=== PATIENT | female | born 1995 | race American Indian/Alaskan Native ===

== ENCOUNTER 2017-06-12 15:37 | Outpatient (CLI) | payer MEDICAID ==
[2017-06-12 17:20] VITALS: BP 137/65
--- NOTE | 2017-06-12 17:37 | Ultrasound Report ---
FINAL REPORT PROCEDURE: US OB BPP WO NON-STRESS TECHNIQUE: Sonographic evaluation for breathing, movement, tone, and amniotic fluid volume was performed. CPT 44268 HISTORY: WELL BEING COMPARISON: No prior studies are available for comparison. FINDINGS: Amniotic fluid volume: Normal-score 2. At least one vertical pocket > 2 cm or more in vertical axis. breathing: Normal-score 2. movement: Normal-score 2. tone: Normal. Score: 8 of 8. heart rate 163 beats per minute IMPRESSION: Normal biophysical profile.
--- NOTE | 2017-06-12 17:41 | Ultrasound Report ---
FINAL REPORT PROCEDURE: US OB LIMITED TECHNIQUE: Real-time limited sonographic examination was performed for evaluation of size, position, heartbeat, fluid volume for each fetus with image documentation (1 or more fetuses). CPT 87050 HISTORY: TOO COMPARISON: No prior studies are available for comparison. FINDINGS: Single viable fetus. TOO 8.9 centimeters. Cephalic position. Heart rate 163 beats per minute. Bio physical profile score of 8 out of 8. TOO 8.9. Estimated age 37 week 3 day estimated delivery June 30, 2017 both by clinical criteria IMPRESSION: Single viable fetus estimated age 37 week 3 day TOO 8.9 centimeters
== END 2017-06-12 18:34 | disposition home or self-care (01) ==
LOC: TRG 15:37
PROVIDERS: ATTEND Obstetrics & Gynecology
DX: O47.1 False labor at or after 37 completed weeks of gestation (principal); Z3A.37 37 weeks gestation of pregnancy
CPT/HCPCS: 59025; 76815; 76819

== ENCOUNTER 2018-02-27 23:08 | Emergency (ER) | payer SELFPAY ==
[2018-02-28 00:44] LABS: Basophils % (Auto) 0.2 % (0.0-1.8); Eosinophils % (Auto) 2.1 % (0.0-4.3); Hematocrit 37.2 % (30.3-42.9); Hemoglobin 12.3 gm/dl (10.1-14.3); Lymphocytes # (Auto) 2.2 K/mm3 (1.2-5.4); Lymphocytes % (Auto) 20.2 % (13.4-35.0); Mean Corpuscular HGB Conc 33 % (30-34); Mean Corpuscular Hemoglobin 28 pg (28-32); Mean Corpuscular Volume 84 fl (79-97); Monocytes # (Auto) 0.7 K/mm3 (0.0-0.8); Monocytes % (Auto) 6.2 % (0.0-7.3); Platelet Count 284 K/mm3 (140-440); Red Blood Count 4.41 M/mm3 (3.65-5.03); Red Cell Distribution Width 16.5 % (13.2-15.2)
[2018-02-28 00:45] LABS: Eosinophils # (Auto) 0.2 K/mm3 (0.0-0.4)
[2018-02-28 00:57] LABS: BUN/Creatinine Ratio 12; Blood Urea Nitrogen 7 mg/dL (7-17); Calcium 9.4 mg/dL (8.4-10.2); Hemolysis Index 0
[2018-02-28] MEDS ORDERED: TORADOL IM ONE (06:32)
[2018-02-28] MEDS ORDERED: TYLENOL PO ONE (06:32)
--- NOTE | 2018-02-28 06:33 | Emergency Department Report ---
ED General Adult HPI - General Chief complaint: Chest Pain Stated complaint: LOWER STOMACH CHEST,BACK HURTING Time Seen by Provider: 02/28/18 06:05 Source: patient, RN notes reviewed Mode of arrival: Ambulatory Limitations: No Limitations - History of Present Illness Initial comments: This is a 22-year-old female who is not known to this provider previously. She denies chronic medical conditions and reportedly does not have a local primary care doctor. Patient presents to the ER with 3 complaints. Her first complaint is back pain. It started 3 days ago. It is paralumbar, and does not radiate anywhere. It does not have exacerbating or relieving factors. She denies lower extremity weakness, numbness, urinary incontinence, bladder or bowel retention/incontinence. She is not taking any pain medicine for. Next complaint is central chest wall pain. The pain has been present for 2 days. It is constant, increases with palpation and decreases with rest. It does not radiate anywhere. She denies oral contraceptives, recent travel, recent immobility, personal or family history of DVT, pulmonary embolus, does not recently taken aspirin, and has not recently consumed cocaine. There is no family history of heart disease that she is aware of. Her final complaint is left lower quadrant abdominal pain. It's been present for 3 days. It does not have exacerbating or relieving factors. It is achy in nature. It does not radiate anywhere. She denies nausea, vomiting, urinary symptoms, constipation. -: Gradual, days(s) Location: chest, back, abdomen Radiation: non-radiation Quality: aching Consistency: other Improves with: other Worsens with: other Associated Symptoms: chest pain. denies: confusion, cough, diaphoresis, fever/ chills, headaches, loss of appetite, malaise, nausea/vomiting, rash, seizure, shortness of breath, syncope, weakness - Related Data Previous Rx's Medication Instructions Recorded Last Taken Type Ibuprofen [Motrin 800 MG tab] 800 mg PO TID PRN #30 tablet 03/27/13 Unknown Rx Ibuprofen [Motrin 800 MG tab] 800 mg PO TID PRN #30 tablet 06/26/17 Unknown Rx oxyCODONE /ACETAMINOPHEN [Percocet 1 - 2 tab PO Q4HR PRN #30 tablet 06/26/17 Unknown Rx 5/325 mg] Acetaminophen [Tylenol Arthritis] 650 mg PO Q6HR PRN #30 tablet.er 02/28/18 Unknown Rx Albuterol Sulfate [Proair 90 mcg IH Q4HR PRN #2 aer.pow.ba 02/28/18 Unknown Rx Respiclick] Ibuprofen [Motrin] 600 mg PO Q8H PRN #30 tablet 02/28/18 Unknown Rx Allergies Allergy/AdvReac Type Severity Reaction Status Date / Time No Known Allergies Allergy Unverified 03/27/13 19:18 ED Review of Systems ROS: Stated complaint: LOWER STOMACH CHEST,BACK HURTING Other details as noted in HPI Comment: All other systems reviewed and negative Cardiovascular: chest pain Gastrointestinal: abdominal pain Musculoskeletal: back pain ED Past Medical Hx - Past Medical History Previous Medical History?: No Hx Hypertension: No Hx Diabetes: No Hx Deep Vein Thrombosis: No Hx Renal Disease: No Hx Sickle Cell Disease: No Hx Seizures: No Hx Asthma: No Hx HIV: No - Surgical History Past Surgical History?: Yes Additional Surgical History: c sec - Social History Smoking Status: Former Smoker Substance Use Type: None - Medications Home Medications: Home Medications Medication Instructions Recorded Confirmed Last Taken Type Ibuprofen [Motrin 800 MG tab] 800 mg PO TID PRN #30 tablet 03/27/13 06/26/17 Unknown Rx Ibuprofen [Motrin 800 MG tab] 800 mg PO TID PRN #30 tablet 06/26/17 Unknown Rx oxyCODONE /ACETAMINOPHEN [Percocet 1 - 2 tab PO Q4HR PRN #30 tablet 06/26/17 Unknown Rx 5/325 mg] Acetaminophen [Tylenol Arthritis] 650 mg PO Q6HR PRN #30 tablet.er 02/28/18 Unknown Rx Albuterol Sulfate [Proair 90 mcg IH Q4HR PRN #2 aer.pow.ba 02/28/18 Unknown Rx Respiclick] Ibuprofen [Motrin] 600 mg PO Q8H PRN #30 tablet 02/28/18 Unknown Rx ED Physical Exam - General Limitations: No Limitations General appearance: alert, in no apparent distress - Head Head exam: Present: atraumatic, normocephalic - Eye Eye exam: Present: normal appearance, EOMI. Absent: nystagmus - ENT ENT exam: Present: normal exam, normal orophraynx, mucous membranes moist, normal external ear exam - Neck Neck exam: Present: normal inspection, full ROM. Absent: tenderness, meningismus - Respiratory Respiratory exam: Present: normal lung sounds bilaterally, chest wall tenderness. Absent: respiratory distress - Cardiovascular Cardiovascular Exam: Present: regular rate, normal rhythm, normal heart sounds. Absent: bradycardia, tachycardia, irregular rhythm, systolic murmur, diastolic murmur, rubs, gallop - GI/Abdominal GI/Abdominal exam: Present: soft, normal bowel sounds. Absent: distended, tenderness, guarding, rebound, rigid, pulsatile mass - External exam: Present: normal external exam. Absent: lesions, lacerations Speculum exam: Present: normal speculum exam. Absent: vaginal bleeding Bi-manual exam: Present: normal bi-manual exam, other (chaperoned by nurse Ashley Scruggs). Absent: cervical motion tendernes, adnexal tenderness, adnexal mass - Extremities Exam Extremities exam: Present: normal inspection, full ROM, normal capillary refill , other (2+ pulses noted in the bilateral upper, lower extremities. Compartments soft. No long bony tenderness. The pelvis is stable.). Absent: tenderness, pedal edema, joint swelling, calf tenderness - Back Exam Back exam: Present: normal inspection, full ROM, paraspinal tenderness. Absent : tenderness, CVA tenderness (R), vertebral tenderness - Neurological Exam Neurological exam: Present: alert, oriented X3, CN II-XII intact, normal gait, other (Extraocular movements intact. Tongue midline. No facial droop. Facial sensation intact to light touch in the V1, V2, V3 distribution bilaterally. 5 and 5 strength in 4 extremities.. Sensation is intact to light touch in 4 extremities.). Absent: motor sensory deficit - Psychiatric Psychiatric exam: Present: normal affect, normal mood - Skin Skin exam: Present: warm, dry, intact, normal color. Absent: rash ED Course Vital Signs 02/27/18 02/28/18 02/28/18 23:17 00:27 06:35 Temperature 98.8 F 98.5 F Pulse Rate 103 H 119 H 87 Respiratory 18 20 20 Rate Blood Pressure 144/83 150/105 O2 Sat by Pulse 96 100 Oximetry - Reevaluation(s) Reevaluation #1: 02/28/18 07:15 Differential diagnosis, including but not limited to: Costochondritis, GERD, gastritis, hiatal hernia, pericarditis, myocarditis, acute coronary syndrome, muscular back pain, urinary tract infection, constipation, ovarian cyst, pelvic inflammatory disease Assessment and plan: 22-year-old female with 3 complaints. Back pain is reproducible. She is afebrile with reassuring vital signs with the exception of resolved tachycardia and elevated blood pressure. She has no pulsatile abdominal mass and equal pulses in the upper, lower extremities. Please reference the [employer] critical pulsing and hypertension that is not symptomatic. She has no physical exam findings or historical features to suggest AAA, or epidural compression syndrome, or epidural abscess. She will be treated supportively and symptomatically for her back pain. Chest wall pain is reproducible. Has no pulmonary embolus or DVT risk factors is low risk by well's criteria, low risk by the GEMMA score, low risk by the heart score. Troponin negative 2, EKG unchanged 2, may have persistent juvenile T-wave inversions. She is at low risk for major adverse cardiac event, and can therefore follow up with outpatient cardiology. Has no lower abdominal tenderness, rebound or guarding. Urinalysis is not consistent with UTI, and she reports that she is not and has a negative test. Again, she will be treated supportively for her lower abdominal pain, and we will perform a gynecologic examination. Reevaluation #2: 02/28/18 07:35 The patient is sleeping comfortably on repeat examination. Her belly is soft on repeat examination. Her pelvic examination is benign. She is noted to be coughing. Her cough has been going on for the past few days. She reports that mother smokes at home. He had bronchitis. Given appropriate anticipatory guidance for bronchitis. Has no gynecologic tenderness or rebound or guarding and no cervical motion tenderness. ED Medical Decision Making - Lab Data Result diagrams: 02/28/18 00:29 02/28/18 00:29 Vital Signs 02/27/18 02/28/18 02/28/18 23:17 00:27 06:35 Temperature 98.8 F 98.5 F Pulse Rate 103 H 119 H 87 Respiratory 18 20 20 Rate Blood Pressure 144/83 150/105 O2 Sat by Pulse 96 100 Oximetry Lab Results 02/28/18 02/28/18 02/28/18 Range/Units 00:29 00:29 03:33 WBC 10.9 (4.5-11.0) K/mm3 RBC 4.41 (3.65-5.03) M/mm3 Hgb 12.3 (10.1-14.3) gm/dl Hct 37.2 (30.3-42.9) % MCV 84 (79-97) fl MCH 28 (28-32) pg MCHC 33 (30-34) % RDW 16.5 H (13.2-15.2) % Plt Count 284 (140-440) K/mm3 Lymph % (Auto) 20.2 (13.4-35.0) % [place] % (Auto) 6.2 (0.0-7.3) % Eos % (Auto) 2.1 (0.0-4.3) % Baso % (Auto) 0.2 (0.0-1.8) % Lymph # 2.2 (1.2-5.4) K/mm3 [place] # 0.7 (0.0-0.8) K/mm3 Eos # 0.2 (0.0-0.4) K/mm3 Baso # 0.0 (0.0-0.1) K/mm3 Seg Neutrophils % 71.3 H (40.0-70.0) % Seg Neutrophils # 7.8 H (1.8-7.7) K/mm3 Sodium 138 (137-145) mmol/L Potassium 3.5 L (3.6-5.0) mmol/L Chloride 101.5 (98-107) mmol/L Carbon Dioxide 25 (22-30) mmol/L Anion Gap 15 mmol/L BUN 7 (7-17) mg/dL Creatinine 0.6 L (0.7-1.2) mg/dL Estimated GFR > 60 ml/min BUN/Creatinine Ratio 12 % Glucose 109 H (65-100) mg/dL Calcium 9.4 (8.4-10.2) mg/dL Troponin T < 0.010 < 0.010 (0.00-0.029) ng/mL HCG, Qual (Negative) Urine Color (Yellow) Urine Turbidity (Clear) Urine pH (5.0-7.0) Ur Specific [place] (1.003-1.030) Urine Protein (Negative) mg/dL Urine Glucose (UA) (Negative) mg/dL Urine Ketones (Negative) mg/dL Urine Blood (Negative) Urine Nitrite (Negative) Urine Bilirubin (Negative) Urine Urobilinogen (<2.0) mg/dL Ur Leukocyte Esterase (Negative) Urine WBC (Auto) (0.0-6.0) /HPF Urine RBC (Auto) (0.0-6.0) /HPF U Epithel Cells (Auto) (0-13.0) /HPF Urine Mucus /HPF 02/28/18 02/28/18 Range/Units Unknown Unknown WBC (4.5-11.0) K/mm3 RBC (3.65-5.03) M/mm3 Hgb (10.1-14.3) gm/dl Hct (30.3-42.9) % MCV (79-97) fl MCH (28-32) pg MCHC (30-34) % RDW (13.2-15.2) % Plt Count (140-440) K/mm3 Lymph % (Auto) (13.4-35.0) % [place] % (Auto) (0.0-7.3) % Eos % (Auto) (0.0-4.3) % Baso % (Auto) (0.0-1.8) % Lymph # (1.2-5.4) K/mm3 [place] # (0.0-0.8) K/mm3 Eos # (0.0-0.4) K/mm3 Baso # (0.0-0.1) K/mm3 Seg Neutrophils % (40.0-70.0) % Seg Neutrophils # (1.8-7.7) K/mm3 Sodium (137-145) mmol/L Potassium (3.6-5.0) mmol/L Chloride (98-107) mmol/L Carbon Dioxide (22-30) mmol/L Anion Gap mmol/L BUN (7-17) mg/dL Creatinine (0.7-1.2) mg/dL Estimated GFR ml/min BUN/Creatinine Ratio % Glucose (65-100) mg/dL Calcium (8.4-10.2) mg/dL Troponin T (0.00-0.029) ng/mL HCG, Qual Negative (Negative) Urine Color Yellow (Yellow) Urine Turbidity Slightly-cloudy (Clear) Urine pH 6.0 (5.0-7.0) Ur Specific [place] 1.018 (1.003-1.030) Urine Protein <15 mg/dl (Negative) mg/dL Urine Glucose (UA) Neg (Negative) mg/dL Urine Ketones Neg (Negative) mg/dL Urine Blood Mod (Negative) Urine Nitrite Neg (Negative) Urine Bilirubin Neg (Negative) Urine Urobilinogen 2.0 (<2.0) mg/dL Ur Leukocyte Esterase Neg (Negative) Urine WBC (Auto) 1.0 (0.0-6.0) /HPF Urine RBC (Auto) 2.0 (0.0-6.0) /HPF U Epithel Cells (Auto) 5.0 (0-13.0) /HPF Urine Mucus Few /HPF - EKG Data -: EKG Interpreted by Me EKG shows normal: sinus rhythm Rate: normal - EKG Data When compared to previous EKG there are: no significant change 02/28/18 07:17 EKG #1 demonstrates normal sinus, 92 bpm, normal axis, normal intervals, questionable persistent juvenile T-wave inversions, this EKG is not a STEMI, EKG #2 appears to be unchanged with prolonged QTC at 452 ms, both EKGs appear to be unchanged when compared to prior EKG from 04/02/2016. - Radiology Data Radiology results: report reviewed, image reviewed X-ray of the chest is negative for acute disease Critical care attestation.: If time is entered above; I have spent that time in minutes in the direct care of this critically ill patient, excluding procedure time. ED Disposition Clinical Impression: Chest wall pain, Back pain, Lower abdominal pain Disposition: DC-01 TO HOME OR SELFCARE Is pt being admited?: No Does the pt Need Aspirin: No Condition: Stable Instructions: Costochondritis (ED) Additional Instructions: Cultures were sent today, and results will be available in the next 5 days. Have a primary care doctor or decorating consultant contact the medical records department to obtain culture results, or patient should contact medical records department herself, to obtain culture results and follow-up with the primary care doctor. I recommend follow-up with the primary care doctor within the next 2 weeks. EKG demonstrated unchanged findings were compared to a prior EKG from 2015, and blood pressure was noted to be elevated. Follow-up with the primary care doctor or supervisor motor vehicle assembly for elevated blood pressure within the next 5-7 days. Long-term complications of hypertension and elevated blood pressure include stroke, heart attack, disability, paralysis, loss of quality of life. Take the pain medication is needed/directed, return to the ER right away with new pain, worsened pain, migration of pain, projectile vomiting, change in mental status, confusion, inability to tolerate liquid feeds. With cough and chest wall pain, patient may have a component of bronchitis/chest cold. Symptoms may persist for up to 3-4 weeks. Patient should not consume tobacco or smoke anything, and people who smoke around the patient should smoke outside , or discontinue tobacco consumption totally. Prescriptions: Acetaminophen [Tylenol Arthritis] 650 mg PO Q6HR PRN #30 tablet.er PRN Reason: Pain Ibuprofen [Motrin] 600 mg PO Q8H PRN #30 tablet PRN Reason: Pain Referrals: [facility] [Provider Group] - 3-5 Days [facility] [Provider Group] - 3-5 Days
[2018-02-28 06:50] LABS: Bilirubin,Urine NEG (Negative); Blood,Urine MOD (Negative); Color,Urine Yellow (Yellow); Mucus,Urine FEW /HPF; Protein,Urine <15 mg/dL mg/dL (Negative)
--- NOTE | 2018-02-28 07:02 | XRay Report ---
FINAL REPORT EXAM: XR CHEST ROUTINE 2V HISTORY: cp TECHNIQUE: PA and lateral chest radiographs PRIORS: 04/02/2016 FINDINGS: No mediastinal shift. Cardiac silhouette is not enlarged. No pneumothorax, effusion, or focal pulmonary opacity. No acute skeletal finding. IMPRESSION: No focal pulmonary opacity.
[2018-02-28 07:42] VITALS: BP 118/45
== END 2018-02-28 09:47 | disposition home or self-care (01) ==
LOC: ED 23:08
DX: R07.89 Other chest pain (principal); M54.9 Dorsalgia, unspecified; R10.32 Left lower quadrant pain; Z87.891 Personal history of nicotine dependence
CPT/HCPCS: 36415; 71046; 80048; 81001; 84484; 84703; 85025; 87210; 87591; 93005; 93010; 96372; 99285; J1885

== ENCOUNTER 2018-06-16 11:13 | Emergency (ER) | payer MEDICAID ==
--- NOTE | 2018-06-16 11:57 | Emergency Department Report ---
Chief Complaint: Upper Respiratory Infection Stated Complaint: COUGING UP BLOOD Time Seen by Provider: 06/16/18 11:35 - HPI History of Present Illness: Ms. Díaz is a very pleasant 23-year-old female with history of productive cough with sputum with small amout of blood. She's been sick with respiratory symptoms for the last 2-3 days. Her 1-year-old daughter at home has similar symptoms. The hemoptysis caused her great concern. She appears well. No indication of respiratory compromise. She has normal vital signs. Respiratory rate 18. Pulse ox 97% on room air. She has clear breath sounds on exam. I do not suspect pneumonia or severe bronchitis. She does not have a life or limb threatening condition at this time. She is discharged after medical screening exam. She does not require further emergent or treatment or evaluation. I recommended home supportive care. She is a former smoker. She is encouraged permanent smoking cessation. - Exam Vital Signs: Vital Signs 06/16/18 11:22 Temperature 97.8 F Pulse Rate 85 Respiratory 18 Rate Blood Pressure 126/56 O2 Sat by Pulse 97 Oximetry MSE screening note: Focused history and physical exam performed. Due to findings the following was ordered: ED Disposition for MSE Condition: Stable
== END 2018-06-16 12:08 | disposition left against medical advice (07) ==
LOC: ED 11:13

== ENCOUNTER 2018-07-08 23:02 | Emergency (ER) | payer MEDICAID ==
[2018-07-08] MEDS ORDERED: TYLENOL PO ONE (23:09)
[2018-07-08 23:21] VITALS: BP 136/73
--- NOTE | 2018-07-09 01:10 | Emergency Department Report ---
ED General Adult HPI - General Chief complaint: Sore Throat Stated complaint: BODY PAIN/RT EYE SWOLLEN/SORE THROAT Time Seen by Provider: 07/09/18 00:19 Source: patient Mode of arrival: Ambulatory Limitations: No Limitations - History of Present Illness Initial comments: 23-year-old -[place] female presents to the emergency room for body aches, sore throat and nasal congestion. Patient denies fever but in triage she has a temperature 102.6. Patient denies any nausea vomiting diarrhea, denies any cough, chest pain, shortness of breathing. Patient does admit to a sick contact of the niece that has strep. Patient currently has no past medical history takes no medications and has no known drug allergies. -: days(s) (3) Severity scale (0 -10): 8 Quality: aching Consistency: constant Improves with: none Worsens with: none Associated Symptoms: fever/chills, headaches, other (body aches, nasal congestion, sore throat and right eye redness with itchiness). denies: nausea/vomiting - Related Data Previous Rx's Medication Instructions Recorded Last Taken Type RX: Ibuprofen [Motrin 800 MG tab] 800 mg PO TID PRN #30 tablet 03/27/13 Unknown Rx RX: Ibuprofen [Motrin 800 MG tab] 800 mg PO TID PRN #30 tablet 06/26/17 Unknown Rx RX: oxyCODONE /ACETAMINOPHEN 1 - 2 tab PO Q4HR PRN #30 tablet 06/26/17 Unknown Rx [Percocet 5/325 mg] Acetaminophen [Tylenol Arthritis] 650 mg PO Q6HR PRN #30 tablet.er 02/28/18 Unknown Rx Albuterol Sulfate [Proair 90 mcg IH Q4HR PRN #2 aer.pow.ba 02/28/18 Unknown Rx Respiclick] Ibuprofen [Motrin] 600 mg PO Q8H PRN #30 tablet 02/28/18 Unknown Rx Erythromycin [Erythromycin Ophth 10 applic OP QID #1 tube 07/09/18 Unknown Rx Oint] Fluticasone [Flonase] 1 spray NS QDAY #1 bottle 07/09/18 Unknown Rx Allergies Allergy/AdvReac Type Severity Reaction Status Date / Time No Known Allergies Allergy Verified 06/16/18 11:22 ED Review of Systems ROS: Stated complaint: BODY PAIN/RT EYE SWOLLEN/SORE THROAT Other details as noted in HPI Comment: All other systems reviewed and negative Eyes: eye discharge ENT: throat pain, congestion, other (rhinorrhea) Neurological: headache ED Past Medical Hx - Past Medical History Previous Medical History?: No Hx Hypertension: No Hx Diabetes: No Hx Deep Vein Thrombosis: No Hx Renal Disease: No Hx Sickle Cell Disease: No Hx Seizures: No Hx Asthma: No Hx HIV: No - Surgical History Past Surgical History?: Yes Additional Surgical History: c sec - Social History Smoking Status: Never Smoker Substance Use Type: None - Medications Home Medications: Home Medications Medication Instructions Recorded Confirmed Last Taken Type RX: Ibuprofen [Motrin 800 MG tab] 800 mg PO TID PRN #30 tablet 03/27/13 06/26/17 Unknown Rx RX: Ibuprofen [Motrin 800 MG tab] 800 mg PO TID PRN #30 tablet 06/26/17 Unknown Rx RX: oxyCODONE /ACETAMINOPHEN 1 - 2 tab PO Q4HR PRN #30 tablet 06/26/17 Unknown Rx [Percocet 5/325 mg] Acetaminophen [Tylenol Arthritis] 650 mg PO Q6HR PRN #30 tablet.er 02/28/18 Unknown Rx Albuterol Sulfate [Proair 90 mcg IH Q4HR PRN #2 aer.pow.ba 02/28/18 Unknown Rx Respiclick] Ibuprofen [Motrin] 600 mg PO Q8H PRN #30 tablet 02/28/18 Unknown Rx Erythromycin [Erythromycin Ophth 10 applic OP QID #1 tube 07/09/18 Unknown Rx Oint] Fluticasone [Flonase] 1 spray NS QDAY #1 bottle 07/09/18 Unknown Rx ED Physical Exam - General Limitations: No Limitations General appearance: alert, in no apparent distress - Head Head exam: Present: atraumatic, normocephalic - Eye Eye exam: Present: EOMI, conjunctival injection - Expanded ENT Exam Expanded Throat exam: Positive: tonsillar erythema, tonsillomegaly, tonsillar exudate - Neck Neck exam: Present: tenderness, lymphadenopathy - Respiratory Respiratory exam: Present: normal lung sounds bilaterally. Absent: respiratory distress - Cardiovascular Cardiovascular Exam: Present: regular rate, normal rhythm. Absent: systolic murmur, diastolic murmur, rubs, gallop - GI/Abdominal GI/Abdominal exam: Present: soft, normal bowel sounds - Extremities Exam Extremities exam: Present: full ROM - Neurological Exam Neurological exam: Present: alert, oriented X3 - Psychiatric Psychiatric exam: Present: normal affect, normal mood - Skin Skin exam: Present: warm, dry, intact, normal color. Absent: rash ED Course Vital Signs 07/08/18 23:17 Temperature 102.6 F H Pulse Rate 112 H Respiratory 18 Rate Blood Pressure 136/73 O2 Sat by Pulse 97 Oximetry ED Medical Decision Making - Medical Decision Making Patient has been evaluated by this provider in fast track. Patient was given ibuprofen in triage for fever and body aches. Rapid strep negative we'll treat for strep Critical care attestation.: If time is entered above; I have spent that time in minutes in the direct care of this critically ill patient, excluding procedure time. ED Disposition Clinical Impression: Nasal sinus congestion Pharyngitis Qualifiers: Pharyngitis/tonsillitis etiology: unspecified etiology Qualified Code(s): J02.9 - Acute pharyngitis, unspecified Conjunctivitis Qualifiers: Conjunctivitis type: acute Acute conjunctivitis type: unspecified Laterality: right Qualified Code(s): H10.31 - Unspecified acute conjunctivitis, right eye Disposition: DC-01 TO HOME OR SELFCARE Is pt being admited?: No Does the pt Need Aspirin: No Condition: Stable Instructions: Pharyngitis (ED), Conjunctivitis (ED) Additional Instructions: Please take medication as prescribed. If her symptoms persist or gets worse please follow up with her primary care provider. I have listed one below for your convenience Prescriptions: Erythromycin [Erythromycin Ophth Oint] 10 applic OP QID #1 tube Fluticasone [Flonase] 1 spray NS QDAY #1 bottle Referrals: [facility] [Provider Group] - 3-5 Days Forms: Accompanied Note, Work/School Release Form(ED)
[2018-07-09] MEDS ORDERED: BICILLIN L-A IM ONE (01:16)
== END 2018-07-09 02:15 | disposition home or self-care (01) ==
LOC: ED 23:02
DX: J02.9 Acute pharyngitis, unspecified (principal); H10.31 Unspecified acute conjunctivitis, right eye
CPT/HCPCS: 87116; 87430; 96372; 99283; J0561; 90471

== ENCOUNTER 2018-08-26 10:46 | Emergency (ER) | payer MEDICAID ==
[2018-08-26 11:12] VITALS: BP 119/54
--- NOTE | 2018-08-26 11:12 | Emergency Department Report ---
Chief Complaint: Back Pain/Injury Stated Complaint: BACK PAIN Time Seen by Provider: 08/26/18 11:11 - HPI History of Present Illness: pt presents with right, lower back pain x1 year denies any other sx no fall, no injury, no trauma states it began after she had her daughter has not seen anyone for this, does not have a PCP MSE screening note: Focused history and physical exam performed. Due to findings the following was ordered: UA, urine preg ED Disposition for MSE Condition: Stable
[2018-08-26] MEDS ORDERED: TORADOL IM ONE (11:55)
--- NOTE | 2018-08-26 12:00 | Emergency Department Report ---
ED Back Pain/Injury HPI - General Chief Complaint: Back Pain/Injury Stated Complaint: BACK PAIN Time Seen by Provider: 08/26/18 11:11 Source: patient Limitations: No Limitations - History of Present Illness Initial Comments: This is a 23-year-old female nontoxic, well nourished in appearance, no acute signs of distress presents to the ED with c/o of acute on chronic lower back pain x1 year. Patient stated that the past 2 days she was moving and developed this pain. Patient states has history of sciatica nerve pain which is similar symptoms as today. Patient states that pain radiates through to his left lower extremity. Patient denies any trauma. Denies any bladder or bowel instability. Patient denies any urinary symptoms. Denies any fever, chills, nausea, vomitin g, headache, stiff neck, chest pain or shortness of breath. Patient denies any numbness or tingling. Denies any allergies. Denies significant past medical history. MD Complaint: back pain -: days(s) (2) Similar Symptoms Previously: Yes Place: home Radiation: left leg Severity: mild Severity scale (0 -10): 8 Quality: aching Consistency: intermittent Improves With: immobilization, sitting upright Worsens With: movement, walking Context: while lifting, turning/twisting Associated Symptoms: denies other symptoms. denies: confusion, weakness, chest pain, numbness, difficulty walking, cough, difficulty urinating, diaphoresis, incontinence, fever/chills, constipation, headaches, abdominal pain, loss of appetite, malaise, nausea/vomiting, rash, seizure, shortness of breath, syncope - Related Data Previous Rx's Medication Instructions Recorded Last Taken Type Ibuprofen [Motrin 800 MG tab] 800 mg PO TID PRN #30 tablet 03/27/13 Unknown Rx Ibuprofen [Motrin 800 MG tab] 800 mg PO TID PRN #30 tablet 06/26/17 Unknown Rx oxyCODONE /ACETAMINOPHEN [Percocet 1 - 2 tab PO Q4HR PRN #30 tablet 06/26/17 Unknown Rx 5/325 mg] Acetaminophen [Tylenol Arthritis] 650 mg PO Q6HR PRN #30 tablet.er 02/28/18 Unknown Rx Albuterol Sulfate [Proair 90 mcg IH Q4HR PRN #2 aer.pow.ba 02/28/18 Unknown Rx Respiclick] Ibuprofen [Motrin] 600 mg PO Q8H PRN #30 tablet 02/28/18 Unknown Rx Erythromycin [Erythromycin Ophth 10 applic OP QID #1 tube 07/09/18 Unknown Rx Oint] Fluticasone [Flonase] 1 spray NS QDAY #1 bottle 07/09/18 Unknown Rx Cyclobenzaprine [Flexeril] 10 mg PO QHS PRN #10 tablet 08/26/18 Unknown Rx Ibuprofen [Motrin] 600 mg PO Q8H PRN #20 tablet 08/26/18 Unknown Rx Allergies Allergy/AdvReac Type Severity Reaction Status Date / Time No Known Allergies Allergy Unverified 08/26/18 10:53 ED Review of Systems ROS: Stated complaint: BACK PAIN Other details as noted in HPI Constitutional: denies: chills, fever Eyes: denies: eye pain, eye discharge, vision change ENT: denies: ear pain, throat pain Respiratory: denies: cough, shortness of breath, wheezing Cardiovascular: denies: chest pain, palpitations Endocrine: no symptoms reported Gastrointestinal: denies: abdominal pain, nausea, diarrhea Genitourinary: denies: urgency, dysuria, discharge Musculoskeletal: back pain. denies: joint swelling, arthralgia Skin: denies: rash, lesions Neurological: denies: headache, weakness, paresthesias Psychiatric: denies: anxiety, depression Hematological/Lymphatic: denies: easy bleeding, easy bruising ED Past Medical Hx - Past Medical History Hx Hypertension: No Hx Diabetes: No Hx Deep Vein Thrombosis: No Hx Renal Disease: No Hx Sickle Cell Disease: No Hx Seizures: No Hx Asthma: No Hx HIV: No - Surgical History Additional Surgical History: c sec - Social History Smoking Status: Never Smoker Substance Use Type: None - Medications Home Medications: Home Medications Medication Instructions Recorded Confirmed Last Taken Type Ibuprofen [Motrin 800 MG tab] 800 mg PO TID PRN #30 tablet 03/27/13 06/26/17 Unknown Rx Ibuprofen [Motrin 800 MG tab] 800 mg PO TID PRN #30 tablet 06/26/17 Unknown Rx oxyCODONE /ACETAMINOPHEN [Percocet 1 - 2 tab PO Q4HR PRN #30 tablet 06/26/17 Unknown Rx 5/325 mg] Acetaminophen [Tylenol Arthritis] 650 mg PO Q6HR PRN #30 tablet.er 02/28/18 Unknown Rx Albuterol Sulfate [Proair 90 mcg IH Q4HR PRN #2 aer.pow.ba 02/28/18 Unknown Rx Respiclick] Ibuprofen [Motrin] 600 mg PO Q8H PRN #30 tablet 02/28/18 Unknown Rx Erythromycin [Erythromycin Ophth 10 applic OP QID #1 tube 07/09/18 Unknown Rx Oint] Fluticasone [Flonase] 1 spray NS QDAY #1 bottle 07/09/18 Unknown Rx Cyclobenzaprine [Flexeril] 10 mg PO QHS PRN #10 tablet 08/26/18 Unknown Rx Ibuprofen [Motrin] 600 mg PO Q8H PRN #20 tablet 08/26/18 Unknown Rx ED Physical Exam - General Limitations: No Limitations General appearance: alert, in no apparent distress - Head Head exam: Present: atraumatic, normocephalic - Eye Eye exam: Present: normal appearance - Neck Neck exam: Present: normal inspection, full ROM. Absent: tenderness, meningismus, lymphadenopathy - Respiratory Respiratory exam: Present: normal lung sounds bilaterally. Absent: respiratory distress, wheezes, rales, rhonchi, stridor, chest wall tenderness, accessory muscle use, decreased breath sounds, prolonged expiratory - Cardiovascular Cardiovascular Exam: Present: regular rate, normal rhythm, normal heart sounds. Absent: bradycardia, tachycardia, irregular rhythm, systolic murmur, diastolic murmur, rubs, gallop - GI/Abdominal GI/Abdominal exam: Present: soft, normal bowel sounds. Absent: distended, tenderness, guarding, rebound, rigid, diminished bowel sounds - Extremities Exam Extremities exam: Present: normal inspection, full ROM - Back Exam Back exam: Present: normal inspection, full ROM, paraspinal tenderness (lumbar paraspinal). Absent: tenderness, CVA tenderness (R), CVA tenderness (L), muscle spasm, vertebral tenderness, rash noted - Expanded Back Exam Expanded Back exam: Absent: saddle anesthesia Back exam: Negative Straight Leg Raising: Left, Right - Neurological Exam Neurological exam: Present: alert, oriented X3 - Psychiatric Psychiatric exam: Present: normal affect, normal mood - Skin Skin exam: Present: warm, dry, intact, normal color. Absent: rash ED Course Vital Signs 08/26/18 11:11 Temperature 98.1 F Pulse Rate 82 Respiratory 16 Rate Blood Pressure 119/54 O2 Sat by Pulse 99 Oximetry - Reevaluation(s) Reevaluation #1: 08/26/18 11:59 Patient is speaking in full sentences with no signs of distress noted. ED Medical Decision Making - Medical Decision Making This is a 23-year-old male that presents with low back strain. Patient is stable was examined by me. UA unremarkable. There is no spinal tenderness. There is no cauda equina syndrome during examination. No bladder or bowel instability. Patient received Toradol 60 mg IM in the ED which preceded his symptoms has resolved and subsided. Patient is discharged with muscle relaxant and Motrin. Patient was instructed not to operate any machinery while taking muscle relaxant as they cause her drowsiness. Patient was referred to Follow-up with a primary care doctor in 3-5 days or if symptoms worsen and continue return to emergency room as soon as possible. At time of discharge, the patient does not seem toxic or ill in appearance. No acute signs of distress noted. Patient agrees to discharge treatment plan of care. No further questions noted by the patient. This chart is dictated with using [employer] Dictation Program Critical care attestation.: If time is entered above; I have spent that time in minutes in the direct care of this critically ill patient, excluding procedure time. ED Disposition Clinical Impression: Low back strain Qualifiers: Encounter type: initial encounter Qualified Code(s): S39.012A - Strain of muscle, fascia and tendon of lower back, initial encounter Disposition: - TO HOME OR SELFCARE Is pt being admited?: No Does the pt Need Aspirin: No Condition: Stable Instructions: Low Back Strain (ED), Cyclobenzaprine (By mouth) Additional Instructions: Follow-up with your primary care doctor in 3-5 days or if symptoms worsen such as bladder or bowel stability, chest pain, short of breath, numbness or tingling sensation in extremities, headache, dizziness, visual changes, nausea vomiting, or abdominal pain, return back to emergency room as was possible. Take ibuprofen and Flexeril as prescribed. Do not operate heavy machinery while taking Flexeril due to sedation Prescriptions: Cyclobenzaprine [Flexeril] 10 mg PO QHS PRN #10 tablet PRN Reason: Muscle Spasm Ibuprofen [Motrin] 600 mg PO Q8H PRN #20 tablet PRN Reason: Pain Referrals: PRIMARY CARE, [Primary Care Provider] - 3-5 Days HENRI CROW MD [Staff Physician] - 3-5 Days [facility] [Outside] - 3-5 Days [facility] [Outside] - 3-5 Days Forms: Work/School Release Form(ED)
[2018-08-26 12:08] LABS: Bacteria,Urine 1+ /HPF (Negative); Bilirubin,Urine NEG (Negative); Blood,Urine NEG (Negative); Color,Urine Yellow (Yellow); Mucus,Urine 2+ /HPF; Protein,Urine <15 mg/dL mg/dL (Negative); Urobilinogen,Urine < 2.0 mg/dL (<2.0)
[2018-08-26 12:10] LABS: HCG Qualitative,Urine Negative (Negative)
== END 2018-08-26 12:29 | disposition home or self-care (01) ==
LOC: ED 10:46
DX: S39.012A Strain of muscle, fascia and tendon of lower back, initial encounter (principal); X50.9XXA Other and unspecified overexertion or strenuous movements or postures, initial encounter; Y93.89 Activity, other specified; Y92.099 Unspecified place in other non-institutional residence as the place of occurrence of the external cause; Y99.8 Other external cause status
CPT/HCPCS: 81001; 81025; 96372; 99283; J1885

== ENCOUNTER 2021-05-04 21:36 | Emergency (ER) | payer MEDICAID, OTHER ==
[2021-05-04 21:41] VITALS: BP 152/90
--- NOTE | 2021-05-04 22:08 | XRay Report ---
CHEST PA AND LATERAL VIEWS INDICATION: CP. COMPARISON: 02/28/2018 FINDINGS: Support devices: None. Heart: Within normal limits. Lungs/Pleura: No acute pulmonary or pleural findings. IMPRESSION: 1. No acute findings. Signer Name: Jose Jennings MD Signed: 05/04/2021 10:03 PM Workstation Name: [id number]
[2021-05-05 01:09] LABS: Basophils % (Auto) 0.3 % (0.0-1.8); Eosinophils # (Auto) 0.1 K/mm3 (0.0-0.4); Eosinophils % (Auto) 1.4 % (0.0-4.3); Hematocrit 36.5 % (30.3-42.9); Hemoglobin 11.2 gm/dl (10.1-14.3); Lymphocytes % (Auto) 38.4 % (13.4-35.0); Mean Corpuscular HGB Conc 31 % (30-34); Mean Corpuscular Volume 82 fl (79-97); Monocytes # (Auto) 0.7 K/mm3 (0.0-0.8); Monocytes % (Auto) 6.6 % (0.0-7.3); Platelet Count 271 K/mm3 (140-440); Red Blood Count 4.47 M/mm3 (3.65-5.03)
[2021-05-05 01:31] LABS: Alanine Aminotransferase 31 units/L (7-56); Albumin 4.2 g/dL (3.9-5); Blood Urea Nitrogen 8 mg/dL (7-17); Calcium 9.4 mg/dL (8.4-10.2); Hemolysis Index 3
[2021-05-05 02:00] LABS: BUN/Creatinine Ratio 13
--- NOTE | 2021-05-05 02:38 | Emergency Department Report ---
ED General Adult HPI - General Chief complaint: Chest Pain Stated complaint: CHEST PAIN Time Seen by Provider: 05/05/21 00:39 Source: patient Mode of arrival: Ambulatory Limitations: No Limitations - History of Present Illness Initial comments: 25-year-old -[place] female with no significant past medical history presents emerged department complaining of a 1 week history chest pain radiating across her chest etiology. Charles concern was she was at work she was working a very long day had not eating any food and thinks she was very hungry and weak and fatigued and strongly believes she had a syncopal episode lasting for about for 5 seconds before she regained consciousness. She reports having no palpitations, no fevers feelings no chills no sweats no nausea vomiting and feels she has returned to baseline with no complications states that she ate she did feel improvement in her symptoms but overall still felt the discomfort that she felt earlier that day so presents emerge department is to be further evaluated to ensure that there is no significant issues Radiation: non-radiation Quality: dull Consistency: constant Improves with: none Worsens with: none Associated Symptoms: denies other symptoms Treatments Prior to Arrival: none - Related Data Previous Rx's Medication Instructions Recorded Last Taken Type Ibuprofen [Motrin 800 MG tab] 800 mg PO TID PRN #30 tablet 03/27/13 Unknown Rx Ibuprofen [Motrin 800 MG tab] 800 mg PO TID PRN #30 tablet 06/26/17 Unknown Rx oxyCODONE /ACETAMINOPHEN [Percocet 1 - 2 tab PO Q4HR PRN #30 tablet 06/26/17 Unknown Rx 5/325 mg] Acetaminophen [Tylenol Arthritis] 650 mg PO Q6HR PRN #30 tablet.er 02/28/18 Unknown Rx Albuterol Sulfate [Proair 90 mcg IH Q4HR PRN #2 aer.pow.ba 02/28/18 Unknown Rx Respiclick] Ibuprofen [Motrin] 600 mg PO Q8H PRN #30 tablet 02/28/18 Unknown Rx Erythromycin [Erythromycin Ophth 10 applic OP QID #1 tube 07/09/18 Unknown Rx Oint] Fluticasone [Flonase] 1 spray NS QDAY #1 bottle 07/09/18 Unknown Rx Cyclobenzaprine [Flexeril] 10 mg PO QHS PRN #10 tablet 08/26/18 Unknown Rx Ibuprofen [Motrin] 600 mg PO Q8H PRN #20 tablet 08/26/18 Unknown Rx Ketorolac [Toradol] 10 mg PO Q6H PRN #14 tablet 05/05/21 Unknown Rx Allergies Allergy/AdvReac Type Severity Reaction Status Date / Time No Known Allergies Allergy Unverified 08/26/18 10:53 ED Review of Systems ROS: Stated complaint: CHEST PAIN Other details as noted in HPI Comment: All other systems reviewed and negative ED Past Medical Hx - Past Medical History Previous Medical History?: No Hx Hypertension: No Hx Diabetes: No Hx Deep Vein Thrombosis: No Hx Renal Disease: No Hx Sickle Cell Disease: No Hx Seizures: No Hx Asthma: No Hx HIV: No - Surgical History Past Surgical History?: Yes Additional Surgical History: c sec - Social History Smoking Status: Never Smoker Substance Use Type: None - Medications Home Medications: Home Medications Medication Instructions Recorded Confirmed Last Taken Type Ibuprofen [Motrin 800 MG tab] 800 mg PO TID PRN #30 tablet 03/27/13 06/26/17 Unknown Rx Ibuprofen [Motrin 800 MG tab] 800 mg PO TID PRN #30 tablet 06/26/17 Unknown Rx oxyCODONE /ACETAMINOPHEN [Percocet 1 - 2 tab PO Q4HR PRN #30 tablet 06/26/17 Unknown Rx 5/325 mg] Acetaminophen [Tylenol Arthritis] 650 mg PO Q6HR PRN #30 tablet.er 02/28/18 Unknown Rx Albuterol Sulfate [Proair 90 mcg IH Q4HR PRN #2 aer.pow.ba 02/28/18 Unknown Rx Respiclick] Ibuprofen [Motrin] 600 mg PO Q8H PRN #30 tablet 02/28/18 Unknown Rx Erythromycin [Erythromycin Ophth 10 applic OP QID #1 tube 07/09/18 Unknown Rx Oint] Fluticasone [Flonase] 1 spray NS QDAY #1 bottle 07/09/18 Unknown Rx Cyclobenzaprine [Flexeril] 10 mg PO QHS PRN #10 tablet 08/26/18 Unknown Rx Ibuprofen [Motrin] 600 mg PO Q8H PRN #20 tablet 08/26/18 Unknown Rx Ketorolac [Toradol] 10 mg PO Q6H PRN #14 tablet 05/05/21 Unknown Rx ED Physical Exam - General Limitations: No Limitations General appearance: alert, in no apparent distress - Head Head exam: Present: atraumatic, normocephalic - Eye Eye exam: Present: normal appearance, PERRL, EOMI Pupils: Present: normal accommodation - ENT ENT exam: Present: normal exam, normal orophraynx, mucous membranes moist, TM's normal bilaterally - Neck Neck exam: Present: normal inspection, full ROM - Respiratory Respiratory exam: Present: normal lung sounds bilaterally, chest wall tenderness. Absent: respiratory distress, wheezes, rales, rhonchi, accessory muscle use, decreased breath sounds - Cardiovascular Cardiovascular Exam: Present: regular rate, normal rhythm. Absent: bradycardia, tachycardia, systolic murmur, diastolic murmur, rubs, gallop - GI/Abdominal GI/Abdominal exam: Present: soft, normal bowel sounds. Absent: distended, tenderness, guarding, hyperactive bowel sounds, hypoactive bowel sounds, organomegaly, mass - Extremities Exam Extremities exam: Present: normal inspection, full ROM, normal capillary refill - Back Exam Back exam: Present: normal inspection. Absent: CVA tenderness (R), CVA tenderness (L) - Neurological Exam Neurological exam: Present: alert, oriented X3, CN II-XII intact, normal gait - Psychiatric Psychiatric exam: Present: normal affect, normal mood. Absent: anxious, flat affect, manic - Skin Skin exam: Present: warm, dry, intact, normal color. Absent: rash, cyanosis, diaphoretic, erythema, petechiae, pallor, abrasion ED Course Vital Signs 05/04/21 21:38 Temperature 98.0 F Pulse Rate 86 Respiratory 18 Rate Blood Pressure 152/90 O2 Sat by Pulse 97 Oximetry ED Medical Decision Making - Lab Data Result diagrams: 05/05/21 00:54 05/05/21 00:54 - EKG Data EKG shows normal: sinus rhythm Rate: normal - EKG Data Interpretation: normal EKG - Radiology Data Radiology results: report reviewed [facility] [address] [place] [address] XRay Report Signed Patient: MARY SAMUELS MR#: [id number] : 1995 Acct:[id number] Age/Sex: 25 / F ADM Date: 05/04/21 Loc: ED Attending Dr: Ordering Physician: ED DOCMD Date of Service: 05/04/21 Procedure(s): XR chest 1V ap Accession Number(s): [id number] cc: ED DOC, Fluoro Time In Minutes: CHEST PA AND LATERAL VIEWS INDICATION: CP. COMPARISON: 02/28/2018 FINDINGS: Support devices: None. Heart: Within normal limits. Lungs/Pleura: No acute pulmonary or pleural findings. IMPRESSION: 1. No acute findings. Signer Name: Jose Jennings MD Signed: 05/04/2021 10:03 PM Workstation Name: [id number] Transcribed By: KAREY Dictated By: Jose Jennings MD Electronically Authenticated By: Jose Jennings MD Signed Date/Time: 05/04/212202 DD/ 02 TD/TT: Print Critical care attestation.: If time is entered above; I have spent that time in minutes in the direct care of this critically ill patient, excluding procedure time. ED Disposition Clinical Impression: Chest pain, Pre-syncope Disposition: HOME / SELF CARE / HOMELESS Is pt being admited?: No Does the pt Need Aspirin: No Condition: Stable Instructions: Near-Syncope, Nonspecific Chest Pain, Adult, Syncope Additional Instructions: You were evaluated emergency department today for chest pain. 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 Please schedule an appointment for follow-up with your primary care physician as soon as possible. Return to emergency department if you expands worsening uncontrolled chest pain, shortness of breath, lightheadedness, feeling faint, nausea, vomiting or any other concerning symptoms. Prescriptions: Ketorolac [Toradol] 10 mg PO Q6H PRN #14 tablet PRN Reason: Pain Referrals: [facility] [Provider Group] - 3-5 Days PRIMARY CARE, [Primary Care Provider] - 3-5 Days
--- NOTE | 2021-05-08 14:09 | Electrocardiograph Report ---
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
== END 2021-05-05 02:55 | disposition home or self-care (01) ==
LOC: ED 21:36
DX: R55 Syncope and collapse (principal); R07.9 Chest pain, unspecified
CPT/HCPCS: 36415; 71045; 80053; 84484; 84703; 85025; 93005; 99283

== ENCOUNTER 2021-11-12 18:13 | Emergency (ER) | payer OTHER ==
[2021-11-12 19:52] VITALS: BP 138/68
[2021-11-12 20:45] LABS: Basophils % (Auto) 0.2 % (0.0-1.8); Eosinophils # (Auto) 0.1 K/mm3 (0.0-0.4); Hematocrit 34.5 % (30.3-42.9); Hemoglobin 11.6 gm/dl (10.1-14.3); Lymphocytes # (Auto) 3.6 K/mm3 (1.2-5.4); Lymphocytes % (Auto) 35.1 % (13.4-35.0); Mean Corpuscular HGB Conc 34 % (30-34); Mean Corpuscular Volume 83 fl (79-97); Monocytes # (Auto) 0.5 K/mm3 (0.0-0.8); Monocytes % (Auto) 4.5 % (0.0-7.3); Platelet Count 269 K/mm3 (140-440); Red Blood Count 4.17 M/mm3 (3.65-5.03); Red Cell Distribution Width 15.8 % (13.2-15.2)
[2021-11-12 20:53] LABS: Alanine Aminotransferase 19 units/L (7-56); Albumin 4.1 g/dL (3.9-5); Blood Urea Nitrogen 9 mg/dL (7-17); Calcium 9.4 mg/dL (8.4-10.2); Hemolysis Index 1
[2021-11-12 20:54] LABS: BUN/Creatinine Ratio 15
[2021-11-13 04:17] LABS: Mucus,Urine FEW /HPF
[2021-11-13 04:37] LABS: Bilirubin,Urine NEG (Negative); Blood,Urine NEG (Negative); Color,Urine Straw (Yellow)
[2021-11-13 04:38] LABS: Protein,Urine <15 mg/dL mg/dL (Negative); Urobilinogen,Urine < 2.0 mg/dL (<2.0)
== END 2021-11-13 06:22 | disposition left against medical advice (07) ==
LOC: ED 18:13
DX: R10.9 Unspecified abdominal pain (principal); Z53.21 Procedure and treatment not carried out due to patient leaving prior to being seen by health care provider; R51.9 Headache, unspecified
CPT/HCPCS: 36415; 80053; 81001; 82150; 83690; 84702; 85025